=== PATIENT | female | born 1960 | race Two or more races ===

== ENCOUNTER 2025-09-02 23:31 | Emergency (ER) | payer OTHER, MEDICAID ==
[~2025-09-02] VITALS: Ht 157.5 cm; Wt 96.0 kg
[2025-09-02 23:34] VITALS: TEMP 97.5
[2025-09-03 00:31] LABS: Hematocrit 42.7 % (36.0-46.0); Hemoglobin 14.4 g/dL (12.2-16.2); Mean Corpuscular Hemoglobin 30.3 pg (28.0-32.0); Mean Corpuscular Volume 90.1 fL (80.0-100.0); Nucleated Red Blood Cells % 0.0 %
[2025-09-03 00:51] LABS: Albumin 4.2 g/dL (3.2-4.8); Alkaline Phosphatase 109 U/L (46-116); Anion Gap 10 (5-15); BUN/Creatinine Ratio 14.5 (10.0-20.0); Blood Urea Nitrogen 11 mg/dL (9-23); Calcium 9.8 mg/dL (8.7-10.4); Carbon Dioxide 30 mmol/L (20-31); Chloride 104 mmol/L (98-107); Glucose 81 mg/dL (74-106); Potassium 3.7 mmol/L (3.5-5.1); Sodium 144 mmol/L (136-145); Total Protein 7.3 g/dL (5.7-8.2)
--- NOTE | 2025-09-03 00:51 | ED.PDOC ---
Back pain HPI HPI Comments HPI: Poor Historian. 64-year-old female presents to the emergency department for evaluation of postoperative left shoulder pain that is causing her blood pressure to increase. Patient says that she had left shoulder surgery in [place] in middle of June and has not been able to follow up with her surgeon because her insurance changed. Patient has been taking Shiner for pain control up until two days ago when she ran out. She started developing left shoulder pain. Patient has already completed physical therapy. Patient has left shoulder pain with movement of left upper extremity. Denies any chest pain shortness of breath nausea or vomiting or fever. Patient has bilateral chronic knee pain in his awaiting surgery in the near future. Past Medical History: Hypertension, hyperlipidemia, CHF, Past Surgical History: Eye surgery, nodule removal from the scalp, tubal The patient is on Lasix as well REVIEW OF SYSTEMS: CONSTITUTIONAL: Denies acute: fever, diaphoresis, chills, generalized weakness. HEAD: Denies acute: headache, photophobia Eyes: Denies acute: Double vision, vision loss, eye pain, eye discharge. EARS: Denies acute: tinnitus, hearing loss, ear discharge, ear pain, THROAT: Denies acute: sore throat, swelling, difficulty swallowing , pain with swallowing, change in voice. NECK: Denies acute: neck pain, neck swelling, stiff neck. HEART: Denies acute : chest pain, palpitations, LUNGS: Denies acute: SOB, wheezing, cough, hemoptysis ABDOMEN: Denies acute: abdominal pain, Nausea, Vomiting, diarrhea, melena , hematemesis, hematochezia SKIN: Denies acute: rash, redness, lesions, itchiness. EXTREMITIES: Denies acute: calf pain, numbness, tingling, weakness, denies pain in extremity. Denies acute: Low back pain. Neuro: Denies acute: focal neurological deficit, motor or sensory focal neurological deficit, tremors, seizure like activity, confusion, dizziness, change in mental status, loss of bowel or bladder function, cauda equina like symptoms. : Denies acute: dysuria, hematuria, flank pain, increase in urinary frequency. PSYCH: Denies acute: hallucination, suicidal ideation, homicidal ideation. FEMALE: Denies acute: abnormal vaginal bleeding, foul odor, unusual discharge. PHYSICAL EXAM: General: -----mild---acute distress, awake and alert. Head: normocephalic, atraumatic. No raccoon's eyes, no ovalle sign. Neck: supple, trachea is midline, no swelling. Throat: Normal phonation. Eyes:, no erythema, no purulent discharge, no proptosis, no icterus. Heart: regular rate, regular rhythm, no significant murmur appreciated. Lungs: no apparent respiratory distress, Able to speak in full sentences. No wheezing, no rhonchi, no crackles. No stridors Clear to auscultation bilaterally. Abdomen: non tender to palpation, non distended, soft, no guarding, no rebound, + bowel sounds. Neuro: Awake, Alert, oriented to name, self, situation, follows commands GCS=15. Speech is normal. Skin: no petechia, no purpura, no cyanosis, non-pale, not jaundice. Lower extremities: --no - Pitting edema no deformity, no focal swelling, no calf TTP. Makes eye contact. moves all four extremities. Sensory motion of the left upper extremity secondar y to left shoulder pain. Evaluation of the left shoulder surgical site: No erythema, no worrisome swelling. The area is somewhat tender to palpation. Decreased range of motion secondary to pain. Patient is neurovascularly intact in the affected extremity. Radial pulses palpable. Sensation and motor are intact. ED COURSE: DISCLAIMER: This medical document was created using an electronic medical record system with voice recognition software and computerized dictation system. Although this document has been carefully reviewed, there might still be some phonetic and typographical errors. Occasional wrong-word or "sound-alike" substitutions may have occurred due to the inherent limitations of voice recognition software. These areas are purely typographical due to imperfections of the software programs and do not reflect any compromise in the patient's medical care. Please read the chart carefully and recognize, using context, where these substitutions have occurred. Chief Complaint: High Blood Pressure Time Seen by MD: 23:42 Reviewed Notes: Allergies Allergies: Coded Allergies: NO KNOWN ALLERGIES (Unverified , 09/02/25) Information Source: Patient Mode of Arrival: Ambulatory Was a procedure done? Was a procedure done?: No Back Pain Differential Dx Differential Diagnosis: DJD, Musculoskeletal Pain, Strain, Other (Postoperative pain, bursitis, hematoma, sepsis, postoperative complication, pain control. As far as the hypertension: DDX include renal disease, thyroid disease, electrolyte abnormality, increased salt intake, medications non-compliance, undiagnosed HTN, Hypertensive crisis, hypertensive urgency., drug toxicity.) X-Ray, Labs, Meds, VS Vital Signs Date Time Temp Pulse Resp B/P (MAP) Pulse Ox O2 Delivery O2 Flow Rate FiO2 09/03/25 02:49 60 18 171/75 (107) 100 09/02/25 23:34 97.5 64 18 179/85 100 97.5 Lab Test 09/03/25 00:38 09/02/25 23:58 Range/Units Troponin I High Sensitivity 3 L 3 L </=34 ng/L C-Reactive Protein High Sensitivity 0.18 <1.0 mg/dL White Blood Count 9.7 4.4-10.8 10^3/uL Red Blood Count 4.74 4.0-5.20 10^6/uL Hemoglobin 14.4 12.2-16.2 g/dL Hematocrit 42.7 36.0-46.0 % Mean Corpuscular Volume 90.1 80.0-100.0 fL Mean Corpuscular Hemoglobin 30.3 28.0-32.0 pg Mean Corpuscular Hemoglobin Concent 33.6 32.0-36.0 g/dL Red Cell Distribution Width 14.7 H 11.8-14.3 % Platelet Count 301 140-450 10^3/uL Mean Platelet Volume 8.4 6.9-10.8 fL Neutrophils (%) (Auto) 53.2 37.0-80.0 % Lymphocytes (%) (Auto) 34.5 10.0-50.0 % Monocytes (%) (Auto) 9.6 0.0-12.0 % Eosinophils (%) (Auto) 1.8 0.0-7.0 % Basophils (%) (Auto) 0.9 0.0-2.0 % Neutrophils # (Auto) 5.2 1.6-8.6 10 ^3/uL Lymphocytes # (Auto) 3.4 0.4-5.4 10 ^3/uL Monocytes # (Auto) 0.9 0-1.3 10 ^3/uL Eosinophils # (Auto) 0.2 0-0.8 10 ^3/uL Basophils # (Auto) 0.1 0-0.2 10 ^3/uL Nucleated Red Blood Cells 0.0 % Sodium Level 144 136-145 mmol/L Potassium Level 3.7 3.5-5.1 mmol/L Chloride Level 104 98-107 mmol/L Carbon Dioxide Level 30 20-31 mmol/L Anion Gap 10 5-15 Blood Urea Nitrogen 11 9-23 mg/dL Creatinine 0.76 0.550-1.02 mg/dL Glomerular Filtration Rate Calc 87 >90 mL/min BUN/Creatinine Ratio 14.5 10.0-20.0 Serum Glucose 81 74-106 mg/dL Lactic Acid Level 1.4 0.4-2.0 mmol/L Calcium Level 9.8 8.7-10.4 mg/dL Total Bilirubin < 0.2 L 0.2-1.0 mg/dL Aspartate Amino Transferase (AST) 11 L 13-40 U/L Alanine Aminotransferase (ALT) < 9 7-40 U/L Alkaline Phosphatase 109 46-116 U/L Total Protein 7.3 5.7-8.2 g/dL Albumin 4.2 3.2-4.8 g/dL Time of 1ST Reevaluation: 03:56 (As of now, none of the medicines ordered as been given to the patient yet. The care of this patient was signed out to my colleague Dr. Anderson follow up and chest x-ray and reassessed the patient and make the appropriate disposition Dr. Anderson. ) Reevaluation 1ST: Unchanged Patient Education/Counseling: Diagnosis, Treatment Family Education/Counseling: Diagnosis, Treatment Assigned to Dr. DR. ANDERSON Comments MDM: patient presented with the above HPI.--- hypertension due to shoulder postoperative pain out of pain medications---workup was initiated. patient was found with the above mentioned diagnosis. the following medications were ordered: please refer to order lists of meds and tests obtained by myself Dr. Aldrich. Patient ED course and VS have been stabilized. Patient has been reassessed in the ED and remained in a stable condition. Patient has been observed in the ED adequate length of time to insure im provement/stability. Escalation of care considered: Consideration of escalation to observation or admission Blood pressure slightly elevated. Patient states that this is due to her pain. The care of this patient was signed out to my colleague Dr. Anderson we think chest x-ray and medications to be given a reassessment of the patient and make an appropriate disposition. Departure 1 Departure Time of Disposition: 03:59 Impression: Primary Impression: Post-operative pain Additional Impression: Hypertension Disposition: 30 STILL A PATIENT Condition: Other Discharged With: Self Critical Care Note Critical Care Time?: No GRAYSON ALDRICH DO Sep 03, 2025 00:51
[2025-09-03 00:54] LABS: Alanine Aminotransferase < 9 U/L (7-40); Bilirubin, Total < 0.2 mg/dL (0.2-1.0)
--- NOTE | 2025-09-03 01:48 | DVH ---
MEDICAL RECORDS NUMBER: [id number] PROCEDURE: XY L SHOULDER 2+ VIEW XRAY DATE: 09/03/2025 01:40 AM HISTORY: post op pain COMPARISON: XR SHOULDER LEFT 2-4 VIEWS on DOS: 01/07/25 FINDINGS/IMPRESSION: Patchy hazy densities noted of the left lung. Minor degenerative changes are seen. No fracture or dislocation or other acute process is seen.
[2025-09-03 04:13] VITALS: BP 190/90; PULSE 65; RESP 18; O2SAT 100
[2025-09-03] MEDS: HYDROcodone-ACET 5/325MG TAB PO ONE (04:17)
[2025-09-03] MEDS: KETOROLAC TROMETH 30 MG/ML 1ML VIAL IV ONE (04:18)
--- NOTE | 2025-09-03 05:34 | DVH ---
MEDICAL RECORDS NUMBER: [id number] PROCEDURE: XY CHEST XRAY 1 VIEW DATE: 09/03/2025 05:05 AM HISTORY: Left lung abnormality Views:1 COMPARISON: None FINDINGS/IMPRESSION: Lungs: Allowing for overlying soft tissues, the lungs appear grossly clear. Mediastinum: Mediastinal structures appear unremarkable... Skeletal: The skeletal structures appear unremarkable.
[2025-09-03] MEDS ORDERED: ACET650T12 PO (05:43)
[2025-09-03] MEDS ORDERED: LIDO5PAD12 EX (05:43)
[2025-09-03] MEDS ORDERED: CYCL-837 PO (05:43)
[2025-09-03] MEDS ORDERED: NAPR-957 PO (05:43)
--- NOTE | 2025-09-03 05:45 | ED.PDOC ---
Departure 1 Departure Time of Disposition: 03:59 Impression: Primary Impression: Post-operative pain Additional Impression: Hypertension Disposition: 01 HOME / SELF CARE / HOMELESS Condition: Stable Additional Instructions: ED DISCHARGE INSTRUCTIONS Instructions: Please read all instructions provided in this packet carefully. Although you have been discharged from the Emergency Department, this does not mean that you have a "clean bill of health". No definitive diagnosis for your symptoms has been made today. It is possible that you are in the process of developing a serious illness. This is why you must return to the ED without fail if any new or worsening symptoms (especially if your symptoms include chest pain, trouble breathing, abdominal pain, fever, headache, confusion, trouble seeing, or trouble walking) It is also very important that you see a primary care provider (PCP) within the next 3-5 days to follow up. If you are unable to get an appointment, return to the ED for re-evaluation. [place] [id number] Ph: [phone] DIAGNOSTIC IMAGING Diagnostic Imaging Report : [id number] Signed PATIENT: ELMER DAVIS ACCT: [id number] UNIT: [id number] : 1960 LOC: ER ROOM / BED: / AGE / SEX: 64 / F ADM STATUS: REG ER SERVICE PROCEDURE(s): LSHD2 - L SHOULDER 2+ VIEW XRAY REASON: post op pain ORDER NUMBER(s): [id number], ACCESSION NUMBER(s): [id number] MEDICAL RECORDS NUMBER: [id number] PROCEDURE: XY L SHOULDER 2+ VIEW XRAY DATE: 09/03/2025 01:40 AM HISTORY: post op pain COMPARISON: XR SHOULDER LEFT 2-4 VIEWS on DOS: 01/07/25 FINDINGS/IMPRESSION: Patchy hazy densities noted of the left lung. Minor degenerative changes are seen. No fracture or dislocation or other acute process is seen. ATED BY: KRISTYN MILLER MD DICTATED DATE/TIME: 09/03/25144 SIGNED BY: KRISTYN MILLER MD SIGNED DATE/TIME: 09/03/25144 CC: [place] [id number] Ph: [phone] DIAGNOSTIC IMAGING Diagnostic Imaging Report : [id number] Signed PATIENT: ELMER DAVIS ACCT: [id number] UNIT: [id number] : 1960 LOC: ER ROOM / BED: / AGE / SEX: 64 / F ADM STATUS: REG ER SERVICE [id number] PROCEDURE(s): CXR1 - CHEST XRAY 1 VIEW REASON: Left lung abnormality ORDER NUMBER(s): [id number], ACCESSION NUMBER(s): [id number] MEDICAL RECORDS NUMBER: [id number] PROCEDURE: XY CHEST XRAY 1 VIEW DATE: 09/03/2025 05:05 AM HISTORY: Left lung abnormality Views:1 COMPARISON: None FINDINGS/IMPRESSION: Lungs: Allowing for overlying soft tissues, the lungs appear grossly clear. Mediastinum: Mediastinal structures appear unremarkable... Skeletal: The skeletal structures appear unremarkable. ATED BY: KRISTYN MILLER MD DICTATED DATE/TIME: 09/03/25531 SIGNED BY: KRISTYN MILLER MD SIGNED DATE/TIME: 09/03/25531 CC: e-Prescriptions Cyclobenzaprine Hcl (Cyclobenzaprine Hcl) 5 Mg Tab 1 TAB PO QPM PRN for 5 Days, #5 TAB Prov: BUD PRITCHETT MD 09/03/25 Naproxen (Naproxen) 375 Mg Tab 1 TAB PO BID PRN for 5 Days, #10 TAB 5 Refills Prov: BUD PRITCHETT MD 09/03/25 Lidocaine (Lidocaine Patch 5%) 5 % Pad 5 % EX DAILY for 15 Days, #15 PAD Prov: BUD PRITCHETT MD 09/03/25 Acetaminophen (Acetaminophen Er) 650 Mg Tab 650 MG PO TIDPRN PRN, #15 TAB Prov: BUD PRITCHETT MD 09/03/25 Discharged With: Self, Relative Comments Sign-out received from Dr. Marvin @ [phone]. Patient re-evaluated prior to discharge. She states her pain has somewhat improved. Blood pressure has improved. Reviewed x-ray results with the patient. 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 Patient well-appearing, nontoxic. Advised prompt follow-up with PCP, return to the ED with any new, worsening or concerning symptoms. BUD PRITCHETT MD Sep 03, 2025 05:45
== END 2025-09-03 06:16 | disposition home or self-care (01) ==
LOC: ER 23:31
DX: G89.18 Other acute postprocedural pain (principal); I11.0 Hypertensive heart disease with heart failure; I50.9 Heart failure, unspecified; E78.5 Hyperlipidemia, unspecified
CPT/HCPCS: 36415; 71045; 73030; 80053; 83605; 84484; 85025; 86141; 96374; 99284; J1885